=== PATIENT | male | born 1990 | race American Indian/Alaskan Native ===

== ENCOUNTER 2020-03-25 10:34 | Emergency (ER) | payer SELFPAY ==
[2020-03-25] MEDS ORDERED: CYCLOBENZAPRINE 10 MG TAB PO ONE (16:45)
--- NOTE | 2020-03-25 16:47 | Emergency Department Report ---
ED General Adult HPI - General Chief complaint: Back Pain/Injury Stated complaint: BACK PAIN EXTREME Time Seen by Provider: 03/25/20 16:39 Source: patient Mode of arrival: Ambulatory Limitations: No Limitations - History of Present Illness Initial comments: 29-year-old -[place] male patient presents with complaints of sudden onset of left mid back pain x2 days. Patient states pain started while he was in the shower and denies any specific injury. He states that the pain worsens with movement of the spine and breathing in deeply. He denies the pain radiating through to his chest or the pain being a ripping tearing type pain. He also denies any shortness of breath, numbness/tingling/weakness in his limbs, or difficulty with ambulation. Patient rates his pain as a 10/10 in severity and states ibuprofen is not helping. - Related Data Previous Rx's Medication Instructions Recorded Last Taken Type Acetaminophen/Codeine [Tylenol 1 tab PO Q6H PRN #6 tab 03/25/20 Unknown Rx /Codeine # 3 tab] Diclofenac Sodium 75 mg PO BID PRN #14 tablet. 03/25/20 Unknown Rx methOCARBAMOL [Robaxin TAB] 1,500 mg PO Q8H PRN #24 tablet 03/25/20 Unknown Rx Allergies Allergy/AdvReac Type Severity Reaction Status Date / Time No Known Allergies Allergy Unverified 03/25/20 16:53 ED Review of Systems ROS: Stated complaint: BACK PAIN EXTREME Other details as noted in HPI Constitutional: denies: chills, diaphoresis, fever, malaise ENT: denies: throat pain Respiratory: denies: cough, shortness of breath Cardiovascular: denies: chest pain Gastrointestinal: denies: abdominal pain, nausea, vomiting Musculoskeletal: back pain Neurological: denies: numbness, paresthesias, abnormal gait ED Past Medical Hx - Past Medical History Additional medical history: BACK PAIN - Surgical History Past Surgical History?: No - Medications Home Medications: Home Medications Medication Instructions Recorded Confirmed Last Taken Type Acetaminophen/Codeine [Tylenol 1 tab PO Q6H PRN #6 tab 03/25/20 Unknown Rx /Codeine # 3 tab] Diclofenac Sodium 75 mg PO BID PRN #14 tablet. 03/25/20 Unknown Rx methOCARBAMOL [Robaxin TAB] 1,500 mg PO Q8H PRN #24 tablet 03/25/20 Unknown Rx ED Physical Exam - General Limitations: No Limitations General appearance: alert, in no apparent distress - Head Head exam: Present: atraumatic, normocephalic - Eye Eye exam: Present: normal appearance. Absent: scleral icterus - Respiratory Respiratory exam: Present: normal lung sounds bilaterally. Absent: respiratory distress - Cardiovascular Cardiovascular Exam: Present: regular rate, normal rhythm - GI/Abdominal GI/Abdominal exam: Present: soft. Absent: tenderness - Extremities Exam Extremities exam: Present: full ROM - Back Exam Back exam: Present: full ROM, muscle spasm (Left upper thoracic), paraspinal tenderness (Left upper). Absent: vertebral tenderness - Neurological Exam Neurological exam: Present: alert, oriented X3, normal gait. Absent: motor sensory deficit - Psychiatric Psychiatric exam: Present: normal affect, normal mood - Skin Skin exam: Present: warm, dry, intact, normal color. Absent: rash, cyanosis, diaphoretic, ecchymosis ED Course Vital Signs 03/25/20 03/25/20 11:39 16:54 Temperature 98.2 F Pulse Rate 76 Respiratory 20 18 Rate Blood Pressure 120/75 O2 Sat by Pulse 100 Oximetry ED Medical Decision Making - Medical Decision Making 29-year-old -[place] male patient presents with complaints of sudden onset of left mid back pain x2 days. Patient states pain started while he was in the shower and denies any specific injury. He states that the pain worsens with movement of the spine and breathing in deeply. He denies the pain radiating through to his chest or the pain being a ripping tearing type pain. He also denies any shortness of breath, numbness/tingling/weakness in his limbs, or difficulty with ambulation. Patient rates his pain as a 10/10 in severity and states ibuprofen is not helping. Pain significantly improved with Flexeril and Toradol. He is well-appearing and stable for discharge home. Recommend follow-up with PCP. Discussed signs and symptoms that should prompt immediate return to the emergency department in detail with patient who verbalizes understanding. Critical care attestation.: If time is entered above; I have spent that time in minutes in the direct care of this critically ill patient, excluding procedure time. ED Disposition Clinical Impression: Back muscle spasm Disposition: DC-01 TO HOME OR SELFCARE Is pt being admited?: No Condition: Stable Instructions: Muscle Spasm (ED) Prescriptions: Diclofenac Sodium 75 mg PO BID PRN #14 tablet.dr PRN Reason: Pain, Moderate (4-6) methOCARBAMOL [Robaxin TAB] 1,500 mg PO Q8H PRN #24 tablet PRN Reason: Muscle spasm/tightness Acetaminophen/Codeine [Tylenol /Codeine # 3 tab] 1 tab PO Q6H PRN #6 tab PRN Reason: Pain , Severe (7-10) Referrals: PRIMARY CARE, [Primary Care Provider] - 3-5 Days
[2020-03-25] MEDS: KETOROLAC 30 MG/1 ML INJ IM ONE ×2 (16:54→16:57)
[2020-03-25 18:09] VITALS: BP 136/67
== END 2020-03-25 18:09 | disposition home or self-care (01) ==
LOC: ED 10:34
DX: M62.830 Muscle spasm of back (principal); Z79.899 Other long term (current) drug therapy
CPT/HCPCS: 96372; 99282; J1885